=== PATIENT | male | born 1960 | race African-American/Black ===

== ENCOUNTER 2023-12-31 11:56 | Emergency (ER) | payer MEDICARE ==
[~2023-12-31] VITALS: Ht 162.6 cm; Wt 58.0 kg
[2023-12-31 12:22] VITALS: O2SAT 97
[2023-12-31 15:00] LABS: BASOPHILS % 0.7 % (0.0-2.0); DIFFERENTIAL COMMENT 0; EOSINOPHILS % 4.4 % (0.0-5.0); HEMATOCRIT. 41.1 % (42.0-52.0); HEMOGLOBIN. 13.3 g/dL (14.0-18.0); LYMPHOCYTES % 55.4 % (20.0-50.0); MEAN CORPUSCULAR HEMOGLOBIN 25.8 pg (28.0-32.0); MEAN CORPUSCULAR HGB CONC 32.2 g/dL (31.0-37.0); MEAN CORPUSCULAR VOLUME 79.9 fL (80.0-94.0); MEAN PLATELET VOLUME 8.3 fl (7.4-10.4); MONOCYTES % 9.3 % (2.0-8.0); NEUTROPHILS % 30.2 % (40.0-76.0); PLATELET 216 x1000/uL (130-400); RED BLOOD CELL COUNT 5.14 mill/uL (4.7-6.1); RED CELL DISTRIBUTION WIDTH 18.1 % (11.6-14.6); WHITE BLOOD COUNT 3.8 x1000/uL (4.5-11.0)
[2023-12-31 15:09] LABS: CHLORIDE 108 mEq/L (98-107); SODIUM 144 mEq/L (136-145)
[2023-12-31 15:10] LABS: CALCIUM 9.2 mg/dL (8.7-10.4); CARBON DIOXIDE 31 mEq/L (21-32)
[2023-12-31 15:15] LABS: GLUCOSE 86 mg/dL (70-105); UREA NITROGEN BLOOD 16 mg/dL (9-23)
[2023-12-31 15:16] LABS: TROPONIN I HIGH SENSITIVITY 33 ng/L (3.0-53)
[2023-12-31 16:06] VITALS: BP 170/62; PULSE 70; RESP 18; TEMP 36.78072; O2SAT 97
== END 2023-12-31 17:24 | disposition home or self-care (01) ==
LOC: ER 11:56
DX: B34.9 Viral infection, unspecified (principal); F17.210 Nicotine dependence, cigarettes, uncomplicated; J44.9 Chronic obstructive pulmonary disease, unspecified
CPT/HCPCS: 36415; 71045; 80048; 83880; 84484; 85025; 93005; 99285